=== PATIENT | male | born 1970 | race American Indian/Alaskan Native ===

== ENCOUNTER 2016-11-09 04:15 | Emergency (ER) | payer BC ==
[2016-11-09 04:16] VITALS: BMI 39.9
[2016-11-09 04:20] VITALS: BP 130/84; PULSE 84; RESP 16; TEMP 98.2; O2SAT 95
[2016-11-09] MEDS ORDERED: Albuterol-Ipratrop 3 mg / 0.5 (3 ml) UD ONE (04:23)
--- NOTE | 2016-11-09 04:24 | ED PDOC ---
Arrival/HPI - General Chief Complaint: Shortness Of Breath Time Seen by Provider: 11/09/16 04:23 Historian: Patient - History of Present Illness Narrative History of Present Illness (Text): 11/09/16 04:24 Jeronimo Copeland is a 46 year old male, whose past medical history includes asthma , who presents to the Emergency department complaining of shortness of breath tonight. Patient states symptoms are consistent with previous episodes of asthma. Patient denies any fever, chills, chest pain, nausea, vomiting, neck pain, headache, dizziness, or any other complaints. Time/Duration: Other (tonight) Symptom Onset: Gradual Symptom Course: Unchanged Activities at Onset: Rest, Light Context: Home Past Medical History - Provider Review Nursing Documentation Reviewed: Yes - Infectious Disease Hx of Infectious Diseases: None - Tetanus Immunization Tetanus Immunization: Up to Date - Past Medical History Past Medical History: No Previous - Cardiac Hx Cardiac Disorders: No - Pulmonary Hx Respiratory Disorders: Yes Hx Asthma: Yes - Neurological Hx Neurological Disorder: No - HEENT Hx HEENT Disorder: No - Renal Hx Renal Disorder: No - Endocrine/Metabolic Hx Endocrine Disorders: No - Hematological/Oncological Hx Blood Disorders: No - Integumentary Hx Dermatological Disorder: No - Musculoskeletal/Rheumatological Hx Musculoskeletal Disorders: Yes (sciatic nerve pain) Hx Falls: No - Gastrointestinal Hx Gastrointestinal Disorders: No - Genitourinary/Gynecological Hx Genitourinary Disorders: No - Psychiatric Hx Psychophysiologic Disorder: No Hx Depression: No Hx Emotional Abuse: No Hx Physical Abuse: No Hx Substance Use: No - Past Surgical History Past Surgical History: No Previous - Anesthesia Hx Anesthesia: Yes Hx Anesthesia Reactions: No Hx Malignant Hyperthermia: No - Suicidal Assessment Feels Threatened In Home Enviroment: No Family/Social History - Physician Review Nursing Documentation Reviewed: Yes Family/Social History: No Known Family HX Smoking Status: Never Smoked Hx Alcohol Use: No Hx Substance Use: No Hx Substance Use Treatment: No Allergies/Home Meds Allergies/Adverse Reactions: Allergies seafood Allergy (Severe, Uncoded 02/17/16 08:20) ANAPHYLAXIS Review of Systems - Physician Review All systems were reviewed & negative as marked: Yes - Review of Systems Constitutional: Normal. absent: Fevers ENT: Normal Respiratory: SOB. absent: Cough Cardiovascular: Normal. absent: Chest Pain Gastrointestinal: Normal. absent: Abdominal Pain, Diarrhea, Nausea, Vomiting Musculoskeletal: Normal. absent: Back Pain, Neck Pain Skin: Normal Neurological: Normal. absent: Headache, Dizziness Physical Exam Vital Signs Reviewed: Yes Vital Signs Temp Pulse Resp BP Pulse Ox 11/09/16 04:18 98.2 F 84 16 130/84 95 Temperature: Afebrile Blood Pressure: Normal Pulse: Regular Respiratory Rate: Normal Appearance: Positive for: Well-Appearing, Non-Toxic, Comfortable Pain Distress: None Mental Status: Positive for: Alert and Oriented X 3 - Systems Exam Head: Present: Atraumatic, Normocephalic Pupils: Present: PERRL Extroacular Muscles: Present: EOMI Conjunctiva: Present: Normal Mouth: Present: Moist Mucous Membranes Neck: Present: Normal Range of Motion Respiratory/Chest: Present: Wheezes (Wheezing bilaterally). No: Respiratory Distress, Accessory Muscle Use Cardiovascular: Present: Regular Rate and Rhythm, Normal S1, S2. No: Murmurs Abdomen: Present: Normal Bowel Sounds. No: Tenderness, Distention, Peritoneal Signs Back: Present: Normal Inspection Upper Extremity: Present: Normal Inspection. No: Cyanosis, Edema Lower Extremity: Present: Normal Inspection. No: Edema Neurological: Present: GCS=15, CN II-XII Intact, Speech Normal Skin: Present: Warm, Dry, Normal Color. No: Rashes Psychiatric: Present: Alert, Oriented x 3, Normal Insight, Normal Concentration Medical Decision Making ED Course and Treatment: 11/09/16 04:24 Impression: 46 year old male complaining of shortness of breath. Differential Diagnosis include but are not limited to: asthma Plan: -- Duoneb -- Solu-medrol -- Reassess and disposition Progress Notes: 11/09/16 05:30 On re-evaluation, the patient feels better and is in no acute distress. Wheezing resolved. I have discussed the results and plan with the patient, who expresses understanding. Patient in agreement with plan to discharged home. Patient is stable for discharge. Patient was instructed to follow up with physician/clinic in 1-2 days or return if symptoms worsen or new concerning symptoms arise. - Medication Orders Current Medication Orders: Discontinued Medications Albuterol/Ipratropium (Duoneb 3 Mg/0.5 Mg (3 Ml) Ud) Confirm Administered Dose 3 ml .ROUTE .STK-MED ONE Stop: 11/09/16 04:24 Albuterol/Ipratropium (Duoneb 3 Mg/0.5 Mg (3 Ml) Ud) 3 ml IH ONCE STA Stop: 11/09/16 04:28 Last Admin: 11/09/16 04:50 Dose: 3 ml Methylprednisolone (Solu-Medrol) 125 mg IVP ONCE ONE Stop: 11/09/16 04:30 Last Admin: 11/09/16 04:50 Dose: 125 mg - Sivan Statement The provider has reviewed the documentation as recorded by the Sergioibcorrine Iqbal All medical record entries made by the Sergioibcorrine were at my direction and personally dictated by me. I have reviewed the chart and agree that the record accurately reflects my personal performance of the history, physical exam, medical decision making, and the department course for this patient. I have also personally directed, reviewed, and agree with the discharge instructions and disposition. Disposition/Present on Arrival - Present on Arrival Any Indicators Present on Arrival: No History of DVT/PE: No History of Uncontrolled Diabetes: No Urinary Catheter: No History of Decub. Ulcer: No History Surgical Site Infection Following: None - Disposition Have Diagnosis and Disposition been Completed?: Yes Diagnosis: Asthma exacerbation Disposition: HOME/ ROUTINE Disposition Time: 05:27 Patient Plan: Discharge Patient Problems: Current Active Problems Problem Status Onset Asthma exacerbation Acute Condition: STABLE Discharge Instructions (ExitCare): Asthma (ED) Additional Instructions: Take meds as prescribed/follow up with your doctor this week Prescriptions: predniSONE [Prednisone] 60 mg PO DAILY #15 tab Albuterol HFA [Ventolin HFA 90 mcg/actuation (8 g)] 2 puff IH [id number] PRN #1 puff PRN Reason: Wheezing
[2016-11-09] MEDS ORDERED: Albuterol-Ipratrop 3 mg / 0.5 (3 ml) UD IH STA (04:27)
== END 2016-11-09 05:55 | disposition home or self-care (01) ==
LOC: ED 04:15
DX: J45.901 Unspecified asthma with (acute) exacerbation (principal)
CPT/HCPCS: 96374; 99282; J2930

== ENCOUNTER 2017-03-05 20:22 | Emergency (ER) | payer BC ==
[2017-03-05 20:22] VITALS: BMI 39.9
--- NOTE | 2017-03-05 20:42 | ED PDOC ---
Arrival/HPI - General Chief Complaint: Shortness Of Breath Time Seen by Provider: 03/05/17 20:31 - History of Present Illness Narrative History of Present Illness (Text): 46M c/o asthma worsening since this morning. he c/o "cold sx" specifically cough for a couple days which he thinks triggered it. he ran out of albuterol today. no fever. Past Medical History - Infectious Disease Hx of Infectious Diseases: None - Tetanus Immunization Tetanus Immunization: Up to Date - Past Medical History Past Medical History: No Previous - Cardiac Hx Cardiac Disorders: No - Pulmonary Hx Respiratory Disorders: Yes Hx Asthma: Yes - Neurological Hx Neurological Disorder: No - HEENT Hx HEENT Disorder: No - Renal Hx Renal Disorder: No - Endocrine/Metabolic Hx Endocrine Disorders: No - Hematological/Oncological Hx Blood Disorders: No - Integumentary Hx Dermatological Disorder: No - Musculoskeletal/Rheumatological Hx Musculoskeletal Disorders: Yes (sciatic nerve pain) Hx Falls: No - Gastrointestinal Hx Gastrointestinal Disorders: No - Genitourinary/Gynecological Hx Genitourinary Disorders: No - Psychiatric Hx Psychophysiologic Disorder: No Hx Depression: No Hx Emotional Abuse: No Hx Physical Abuse: No Hx Substance Use: No - Past Surgical History Past Surgical History: No Previous - Anesthesia Hx Anesthesia: Yes Hx Anesthesia Reactions: No Hx Malignant Hyperthermia: No - Suicidal Assessment Feels Threatened In Home Enviroment: No Family/Social History Family/Social History: Other (nc) Smoking Status: Never Smoked Hx Alcohol Use: No Hx Substance Use: No Hx Substance Use Treatment: No Allergies/Home Meds Allergies/Adverse Reactions: Allergies seafood Allergy (Severe, Uncoded 02/17/16 08:20) ANAPHYLAXIS Review of Systems - Review of Systems Constitutional: absent: Fatigue, Fevers Respiratory: SOB, Cough, Wheezing Cardiovascular: absent: Chest Pain Gastrointestinal: absent: Nausea, Vomiting Neurological: absent: Headache, Focal Weakness Physical Exam Vital Signs Temp Pulse Resp BP Pulse Ox 03/05/17 21:36 77 18 123/77 97 03/05/17 21:09 97.8 F 70 18 119/75 95 03/05/17 21:05 18 95 Appearance: Positive for: Well-Appearing, Non-Toxic, Comfortable Pain Distress: None Mental Status: Positive for: Alert and Oriented X 3 - Systems Exam Head: Present: Atraumatic Pupils: Present: PERRL Mouth: Present: Moist Mucous Membranes Respiratory/Chest: Present: Wheezes. No: Good Air Exchange, Respiratory Distress, Accessory Muscle Use, Tachypneic Cardiovascular: Present: Regular Rate and Rhythm Neurological: Present: GCS=15 Skin: Present: Warm, Dry Medical Decision Making ED Course and Treatment: EKG: Ordered, reviewed, and independently interpreted the EKG. Rate : 68 BPM Rhythm : NSR Interpretation : Normal axis, normal intervals, No acute STEMI. Comparison : No previous EKG for comparison. 03/05/17 21:30 Patient states feeling "100% better." Will discharge home. - Medication Orders Current Medication Orders: Discontinued Medications Albuterol/Ipratropium (Duoneb 3 Mg/0.5 Mg (3 Ml) Ud) 3 ml IH Q15M [id number] Stop: 03/05/17 21:16 Last Admin: 03/05/17 20:54 Dose: 3 ml Prednisone (Prednisone Tab) 60 mg PO STAT ONE Stop: 03/05/17 20:38 Last Admin: 03/05/17 20:50 Dose: 60 mg Disposition/Present on Arrival - Present on Arrival Any Indicators Present on Arrival: No History of DVT/PE: No History of Uncontrolled Diabetes: No Urinary Catheter: No History of Decub. Ulcer: No History Surgical Site Infection Following: None - Disposition Have Diagnosis and Disposition been Completed?: Yes Diagnosis: Asthma exacerbation Disposition: HOME/ ROUTINE Disposition Time: 21:30 Condition: IMPROVED Additional Instructions: Please follow up with your doctor. Return to the ER for any worsening symptoms or for any other concerns. Prescriptions: Albuterol HFA [Ventolin HFA 90 mcg/actuation (8 g)] 1 - 2 puff IH Q6H PRN #1 inhaler PRN Reason: Wheezing Prednisone 50 mg PO DAILY #4 tablet Referrals: [facility] [place] - Follow up with primary [facility], [Non-Staff] - Follow up with primary Forms: [employer] (Andorran)
[2017-03-05] MEDS: Albuterol-Ipratrop 3 mg / 0.5 (3 ml) UD IH SCH (20:54)
[2017-03-05 21:10] VITALS: RESP 18; TEMP 97.8
[2017-03-05 22:09] VITALS: BP 123/77; PULSE 77; O2SAT 97
--- NOTE | 2017-03-06 13:07 | CARD ---
APPROVED REPORT EKG Measurement Heart [id number] <Conclusion> Normal sinus rhythm Normal ECG
== END 2017-03-05 21:38 | disposition home or self-care (01) ==
LOC: ED 20:22
DX: J45.901 Unspecified asthma with (acute) exacerbation (principal)

== ENCOUNTER 2017-05-22 19:56 | Emergency (ER) | payer BC ==
[2017-05-22] MEDS ORDERED: Albuterol 0.083% Inhal Sol (2.5 mg/3 mL) UD ONE (20:01)
[2017-05-22] MEDS ORDERED: Albuterol-Ipratrop 3 mg / 0.5 (3 ml) UD ONE (20:01)
[2017-05-22 20:11] VITALS: BP 131/85; PULSE 64; RESP 18; TEMP 98.2; O2SAT 99; BMI 38.6
[2017-05-22] MEDS ORDERED: Albuterol-Ipratrop 3 mg / 0.5 (3 ml) UD IH STA (20:11)
--- NOTE | 2017-05-22 20:19 | ED PDOC ---
Arrival/HPI - General Chief Complaint: Respiratory Distress Time Seen by Provider: 05/22/17 20:03 Historian: Patient - History of Present Illness Narrative History of Present Illness (Text): 05/22/17 20:18 Jeronimo Copeland is a 46 year old male, whose past medical history includes asthma , presents to the Emergency department complaining of shortness of breath associated with wheezing this morning. Patient informs taking albuterol with no improvement to symptoms. Patient states similar symptoms from previous episode. Patient additionally informs coughing with yellow phlegm since today and chronic sinus congestion from couple months. Patient denies any fever, nausea, vomiting, diarrhea, chills, chest pain, sick contact, abdominal pain or any other complaints. Time/Duration: 24 hours Symptom Onset: Gradual Symptom Course: Unchanged Activities at Onset: Light Context: Home Past Medical History - Provider Review Nursing Documentation Reviewed: Yes - Infectious Disease Hx of Infectious Diseases: None - Tetanus Immunization Tetanus Immunization: Up to Date - Past Medical History Past Medical History: No Previous - Cardiac Hx Cardiac Disorders: No - Pulmonary Hx Respiratory Disorders: Yes Hx Asthma: Yes - Neurological Hx Neurological Disorder: No - HEENT Hx HEENT Disorder: No - Renal Hx Renal Disorder: No - Endocrine/Metabolic Hx Endocrine Disorders: No - Hematological/Oncological Hx Blood Disorders: No - Integumentary Hx Dermatological Disorder: No - Musculoskeletal/Rheumatological Hx Musculoskeletal Disorders: Yes (sciatic nerve pain) Hx Falls: No - Gastrointestinal Hx Gastrointestinal Disorders: No - Genitourinary/Gynecological Hx Genitourinary Disorders: No - Psychiatric Hx Psychophysiologic Disorder: No Hx Depression: No Hx Emotional Abuse: No Hx Physical Abuse: No Hx Substance Use: No - Past Surgical History Past Surgical History: No Previous - Anesthesia Hx Anesthesia: Yes Hx Anesthesia Reactions: No Hx Malignant Hyperthermia: No - Suicidal Assessment Feels Threatened In Home Enviroment: No Family/Social History - Physician Review Nursing Documentation Reviewed: Yes Family/Social History: Unknown Family HX Smoking Status: Never Smoked Hx Alcohol Use: No Hx Substance Use: No Hx Substance Use Treatment: No Allergies/Home Meds Allergies/Adverse Reactions: Allergies seafood Allergy (Severe, Uncoded 05/22/17 20:08) ANAPHYLAXIS Review of Systems - Physician Review All systems were reviewed & negative as marked: Yes - Review of Systems Constitutional: Normal. absent: Fevers, Night Sweats Eyes: Normal ENT: Normal. absent: Sore Throat Respiratory: SOB (associated wheezing ), Cough (yellow phlegm ) Cardiovascular: Normal. absent: Chest Pain Gastrointestinal: Normal. absent: Abdominal Pain, Diarrhea, Nausea, Vomiting Genitourinary Male: Normal Musculoskeletal: Normal Skin: Normal Neurological: Normal Endocrine: Normal Hemo/Lymphatic: Normal Psychiatric: Normal Physical Exam Vital Signs Reviewed: Yes Vital Signs Temp Pulse Resp BP Pulse Ox 05/22/17 20:05 98.2 F 64 18 131/85 99 Temperature: Afebrile Blood Pressure: Normal Pulse: Regular Respiratory Rate: Normal Appearance: Positive for: Well-Appearing, Non-Toxic, Comfortable Pain Distress: None Mental Status: Positive for: Alert and Oriented X 3 - Systems Exam Head: Present: Atraumatic, Normocephalic Pupils: Present: PERRL Extroacular Muscles: Present: EOMI Conjunctiva: Present: Normal Mouth: Present: Moist Mucous Membranes Nose (Internal): Present: Other (Mild nasal inflammation ) Neck: Present: Normal Range of Motion Respiratory/Chest: Present: Good Air Exchange, Respiratory Distress (mild respiratory distress ), Accessory Muscle Use, Wheezes (diffuse wheezing ), Other (clear phlegm ) Cardiovascular: Present: Regular Rate and Rhythm, Normal S1, S2. No: Murmurs Abdomen: Present: Normal Bowel Sounds. No: Tenderness, Distention, Peritoneal Signs Back: Present: Normal Inspection Upper Extremity: Present: Normal Inspection. No: Cyanosis, Edema Lower Extremity: Present: Normal Inspection. No: Edema Neurological: Present: GCS=15, CN II-XII Intact, Speech Normal Skin: Present: Warm, Dry, Normal Color. No: Rashes Psychiatric: Present: Alert, Oriented x 3, Normal Insight, Normal Concentration Medical Decision Making ED Course and Treatment: 05/22/17 20:19 Impression: 46 year old male presents to the Emergency department for shortness of breath associated with coughing with phlegm. Differential Diagnosis included but are not limited to: asthma exacerbation. Plan: -- Albuterol -- zithromax -- prednisone -- Reassess and disposition Prior Visits: Notes and results from previous visits were reviewed. On 03/05/17 patient was seen in the Emergency department for worsening asthma. Patient was discharged home upon improvement. Progress Notes: 05/22/17 20:49 Reassessment Condition: Re-examined, Improved - Medication Orders Current Medication Orders: Discontinued Medications Albuterol/Ipratropium (Duoneb 3 Mg/0.5 Mg (3 Ml) Ud) 3 ml IH STAT STA Stop: 05/22/17 20:12 Last Admin: 05/22/17 20:36 Dose: 3 ml Azithromycin (Zithromax) 500 mg PO STAT STA PRN Reason: Protocol Stop: 05/22/17 20:13 Last Admin: 05/22/17 20:35 Dose: 500 mg Prednisone (Prednisone Tab) 60 mg PO STAT ONE Stop: 05/22/17 20:12 Last Admin: 05/22/17 20:35 Dose: 60 mg - Scribe Statement The provider has reviewed the documentation as recorded by the Scribe Connie Becker. All medical record entries made by the Sergioibcorrine were at my direction and personally dictated by me. I have reviewed the chart and agree that the record accurately reflects my personal performance of the history, physical exam, medical decision making, and the department course for this patient. I have also personally directed, reviewed, and agree with the discharge instructions and disposition. Disposition/Present on Arrival - Present on Arrival Any Indicators Present on Arrival: No History of DVT/PE: No History of Uncontrolled Diabetes: No Urinary Catheter: No History of Decub. Ulcer: No History Surgical Site Infection Following: None - Disposition Have Diagnosis and Disposition been Completed?: Yes Diagnosis: Asthma exacerbation Disposition: HOME/ ROUTINE Disposition Time: 21:00 Patient Plan: Discharge Patient Problems: Current Active Problems Problem Status Onset Asthma exacerbation Acute Condition: IMPROVED Discharge Instructions (ExitCare): Asthma (DC), Acute Bronchitis (ED) Additional Instructions: Your blood pressure was elevated today 135/85, please followup with your doctor for a blood pressure recheck and management if necessary. Prescriptions: Azithromycin [Zithromax] 250 mg PO DAILY #4 tab Fluticasone/Salmeterol 100/50 [Advair Diskus 100/50] 1 puff IH Q12 #1 inhaler Prednisone 50 mg PO DAILY #4 tablet Referrals: [facility], [Primary Care Provider] - Follow up with primary Forms: [employer] (Paraguayan)
== END 2017-05-22 21:00 | disposition home or self-care (01) ==
LOC: ED 19:56
DX: J45.901 Unspecified asthma with (acute) exacerbation (principal)

== ENCOUNTER 2017-06-17 23:56 | Emergency (ER) | payer BC ==
[2017-06-17 23:56] VITALS: BMI 39.9
[2017-06-18 00:25] VITALS: RESP 18; TEMP 98.4
--- NOTE | 2017-06-18 01:18 | ED PDOC ---
Arrival/HPI - General Chief Complaint: Male Genitourinary Time Seen by Provider: 06/18/17 00:56 Historian: Patient - History of Present Illness Narrative History of Present Illness (Text): 06/18/17 01:17 Jeronimo Copeland is a 46 year old male, whose past medical history includes asthma , who presents to the Emergency department for STD prophylaxis tonight. Patient states his fiance was recently diagnosed with trichomonas and is requesting prophylactic treatment. Patient denies any penile discharge, rash, abdominal pain, nausea, vomiting, or any other complaints. Symptom Onset: Gradual Symptom Course: Unchanged Activities at Onset: Light Context: Home Past Medical History - Provider Review Nursing Documentation Reviewed: Yes - Infectious Disease Hx of Infectious Diseases: None - Tetanus Immunization Tetanus Immunization: Up to Date - Past Medical History Past Medical History: No Previous - Cardiac Hx Cardiac Disorders: No - Pulmonary Hx Respiratory Disorders: Yes Hx Asthma: Yes - Neurological Hx Neurological Disorder: No - HEENT Hx HEENT Disorder: No - Renal Hx Renal Disorder: No - Endocrine/Metabolic Hx Endocrine Disorders: No - Hematological/Oncological Hx Blood Disorders: No - Integumentary Hx Dermatological Disorder: No - Musculoskeletal/Rheumatological Hx Musculoskeletal Disorders: Yes (sciatic nerve pain) Hx Falls: No - Gastrointestinal Hx Gastrointestinal Disorders: No - Genitourinary/Gynecological Hx Genitourinary Disorders: No - Psychiatric Hx Psychophysiologic Disorder: No Hx Depression: No Hx Emotional Abuse: No Hx Physical Abuse: No Hx Substance Use: No - Past Surgical History Past Surgical History: No Previous - Anesthesia Hx Anesthesia: Yes Hx Anesthesia Reactions: No Hx Malignant Hyperthermia: No - Suicidal Assessment Feels Threatened In Home Enviroment: No Family/Social History - Physician Review Nursing Documentation Reviewed: Yes Family/Social History: Unknown Family HX Smoking Status: Never Smoked Hx Alcohol Use: No Hx Substance Use: No Hx Substance Use Treatment: No Allergies/Home Meds Allergies/Adverse Reactions: Allergies seafood Allergy (Severe, Uncoded 06/18/17 00:12) ANAPHYLAXIS Review of Systems - Physician Review All systems were reviewed & negative as marked: Yes - Review of Systems Constitutional: Normal. absent: Fevers Eyes: Normal ENT: Normal Respiratory: Normal. absent: SOB, Cough Cardiovascular: Normal. absent: Chest Pain Gastrointestinal: Normal. absent: Abdominal Pain, Diarrhea, Nausea, Vomiting Genitourinary Male: Normal. absent: Dysuria, Frequency, Hematuria, Urinary Output Changes Musculoskeletal: Normal. absent: Back Pain, Neck Pain Skin: Normal. absent: Rash Neurological: Normal. absent: Headache, Dizziness Endocrine: Normal Hemo/Lymphatic: Normal Psychiatric: Normal Physical Exam Vital Signs Reviewed: Yes Vital Signs Temp Pulse Resp BP Pulse Ox 06/18/17 01:59 86 18 126/75 99 06/18/17 00:13 98.4 F 72 18 120/80 96 Temperature: Afebrile Blood Pressure: Normal Pulse: Regular Respiratory Rate: Normal Appearance: Positive for: Well-Appearing, Non-Toxic, Comfortable Pain Distress: None Mental Status: Positive for: Alert and Oriented X 3 - Systems Exam Head: Present: Atraumatic, Normocephalic Pupils: Present: PERRL Extroacular Muscles: Present: EOMI Conjunctiva: Present: Normal Mouth: Present: Moist Mucous Membranes Neck: Present: Normal Range of Motion Respiratory/Chest: Present: Clear to Auscultation, Good Air Exchange. No: Respiratory Distress, Accessory Muscle Use Cardiovascular: Present: Regular Rate and Rhythm, Normal S1, S2. No: Murmurs Abdomen: Present: Normal Bowel Sounds. No: Tenderness, Distention, Peritoneal Signs Back: Present: Normal Inspection Upper Extremity: Present: Normal Inspection. No: Cyanosis, Edema Lower Extremity: Present: Normal Inspection. No: Edema Neurological: Present: GCS=15, CN II-XII Intact, Speech Normal Skin: Present: Warm, Dry, Normal Color. No: Rashes Psychiatric: Present: Alert, Oriented x 3, Normal Insight, Normal Concentration Medical Decision Making ED Course and Treatment: 06/18/17 01:17 Impression: 46 year old male presents for STD prophylaxis tonight. Plan: -- GC/Chlamydia -- Flagyl -- Reassess and disposition Progress Notes: - Medication Orders Current Medication Orders: Discontinued Medications Metronidazole (Flagyl) 2,000 mg PO STAT STA PRN Reason: Protocol Stop: 06/18/17 01:19 Last Admin: 06/18/17 01:30 Dose: 2,000 mg - Scribe Statement The provider has reviewed the documentation as recorded by the Scribe Roxanna Iqbal All medical record entries made by the Scribe were at my direction and personally dictated by me. I have reviewed the chart and agree that the record accurately reflects my personal performance of the history, physical exam, medical decision making, and the department course for this patient. I have also personally directed, reviewed, and agree with the discharge instructions and disposition. Disposition/Present on Arrival - Present on Arrival Any Indicators Present on Arrival: No History of DVT/PE: No History of Uncontrolled Diabetes: No Urinary Catheter: No History of Decub. Ulcer: No History Surgical Site Infection Following: None - Disposition Have Diagnosis and Disposition been Completed?: Yes Diagnosis: Sexually transmitted disease exposure Disposition: HOME/ ROUTINE Disposition Time: 01:20 Patient Plan: Discharge Condition: GOOD Additional Instructions: Follow up with your doctor this week Forms: [employer] (French)
[2017-06-18 02:03] VITALS: BP 126/75; PULSE 86; O2SAT 99
== END 2017-06-18 01:59 | disposition home or self-care (01) ==
LOC: ED 23:56
DX: Z20.2 Contact with and (suspected) exposure to infections with a predominantly sexual mode of transmission (principal)

== ENCOUNTER 2017-08-31 09:50 | Emergency (ER) | payer BC ==
[2017-08-31 09:58] VITALS: BP 151/66; TEMP 98.5
[2017-08-31 09:59] VITALS: BMI 40.7
[2017-08-31 10:02] VITALS: PULSE 74; RESP 19
[2017-08-31] MEDS ORDERED: Albuterol-Ipratrop 3 mg / 0.5 (3 ml) UD IH STA (10:10)
[2017-08-31] MEDS ORDERED: Albuterol-Ipratrop 3 mg / 0.5 (3 ml) UD ONE (10:18)
--- NOTE | 2017-08-31 10:24 | ED PDOC ---
Arrival/HPI - General Chief Complaint: Shortness Of Breath Time Seen by Provider: 08/31/17 09:56 Historian: Patient - History of Present Illness Narrative History of Present Illness (Text): 08/31/17 10:20 46 yo M with PMH of asthma presents complaining of asthma exacerbation, specifically: chest tightness, shortness of breath, cough, runny nose, sneezing. Symptoms have been ongoing for 3 days, without improvement. He has had episodes like in this in the past, for which he usually reports to the ER, gets breathing treatments and steroids, and feels better and goes home. Patient only takes ventolin at home, which he has been using 5-6 times daily, and normally uses 3-4 times daily every day. He reports two sick contacts at home with similar symptoms. He denies fever, abdominal pain, headache. Denies chest pain. Time/Duration: < week Symptom Onset: Gradual Symptom Course: Unchanged Quality: Tightness Activities at Onset: Rest Past Medical History - Provider Review Nursing Documentation Reviewed: Yes - Travel History Have you recently traveled outside [place] w/in the past 3 mons?: No - Patient History Narrative Patient History: Asthma - Infectious Disease Hx of Infectious Diseases: None - Tetanus Immunization Tetanus Immunization: Up to Date - Past Medical History Past Medical History: No Previous - Cardiac Hx Cardiac Disorders: No - Pulmonary Hx Respiratory Disorders: Yes Hx Asthma: Yes - Neurological Hx Neurological Disorder: No - HEENT Hx HEENT Disorder: No - Renal Hx Renal Disorder: No - Endocrine/Metabolic Hx Endocrine Disorders: No - Hematological/Oncological Hx Blood Disorders: No - Integumentary Hx Dermatological Disorder: No - Musculoskeletal/Rheumatological Hx Musculoskeletal Disorders: Yes (sciatic nerve pain) Hx Falls: No - Gastrointestinal Hx Gastrointestinal Disorders: No - Genitourinary/Gynecological Hx Genitourinary Disorders: No - Psychiatric Hx Psychophysiologic Disorder: No Hx Depression: No Hx Emotional Abuse: No Hx Physical Abuse: No Hx Substance Use: No - Past Surgical History Past Surgical History: No Previous - Anesthesia Hx Anesthesia: Yes Hx Anesthesia Reactions: No Hx Malignant Hyperthermia: No - Suicidal Assessment Feels Threatened In Home Enviroment: No Family/Social History - Physician Review Nursing Documentation Reviewed: Yes Family/Social History: Diabetes Narrative Family History (Free Text): 08/31/17 10:27 Asthma, lung CA Smoking Status: Never Smoked Hx Alcohol Use: No Hx Substance Use: No Hx Substance Use Treatment: No Allergies/Home Meds Allergies/Adverse Reactions: Allergies seafood Allergy (Severe, Uncoded 08/31/17 09:58) ANAPHYLAXIS Review of Systems - Review of Systems Constitutional: Normal Eyes: Normal ENT: Sore Throat, Rhinorrhea, Sinus Congestion Respiratory: SOB, Cough, Sputum, Wheezing Cardiovascular: Normal Gastrointestinal: Normal Genitourinary Male: Normal Musculoskeletal: Normal Skin: Normal Neurological: Normal Endocrine: Normal Hemo/Lymphatic: Normal Psychiatric: Normal Physical Exam Vital Signs Temp Pulse Resp BP Pulse Ox 08/31/17 09:59 74 19 151/66 H 100 08/31/17 09:58 98.5 F 81 18 151/66 H 95 Temperature: Afebrile Blood Pressure: Hypertensive Pulse: Regular Respiratory Rate: Normal Appearance: Positive for: Well-Appearing, Non-Toxic, Comfortable Pain Distress: None Mental Status: Positive for: Alert and Oriented X 3 - Systems Exam Head: Present: Atraumatic, Normocephalic Pupils: Present: PERRL Extroacular Muscles: Present: EOMI Conjunctiva: Present: Normal Mouth: Present: Moist Mucous Membranes Neck: Present: Normal Range of Motion Respiratory/Chest: Present: Clear to Auscultation, Wheezes (upper airway), Decreased Breath Sounds. No: Good Air Exchange, Respiratory Distress, Accessory Muscle Use Cardiovascular: Present: Regular Rate and Rhythm, Normal S1, S2 Abdomen: Present: Normal Bowel Sounds. No: Tenderness, Distention Upper Extremity: Present: Normal Inspection Lower Extremity: Present: Normal Inspection Neurological: Present: GCS=15, CN II-XII Intact Skin: Present: Warm, Dry, Normal Color Psychiatric: Present: Alert, Oriented x 3, Normal Insight, Normal Concentration Medical Decision Making ED Course and Treatment: 08/31/17 10:32 Ordered CXR PA/LAT Ordered Duonebs, PO prednisone, and Tessalon Perles 08/31/17 10:58 CXR unremarkable, as interpreted by ED attending Clinically improved. Will discharge to home with course of PO prednisone and nebulized albuterol Reassessment Condition: Re-examined, Improved - RAD Interpretation Radiology Orders: 08/31/17 10:10 CHEST TWO VIEWS (PA/LAT) [RAD] Stat Research Microbiologist: ED Physician - Medication Orders Current Medication Orders: Discontinued Medications Albuterol/Ipratropium (Duoneb 3 Mg/0.5 Mg (3 Ml) Ud) 3 ml IH STAT STA Stop: 08/31/17 10:11 Last Admin: 08/31/17 10:25 Dose: 3 ml Benzonatate (Tessalon Perles) 100 mg PO STAT STA Stop: 08/31/17 10:20 Oseltamivir Phosphate (Tamiflu Cap) 75 mg PO STAT STA PRN Reason: Protocol Stop: 08/31/17 10:15 Prednisone (Prednisone Tab) 50 mg PO STAT STA Stop: 08/31/17 10:11 Disposition/Present on Arrival - Present on Arrival Any Indicators Present on Arrival: No History of DVT/PE: No History of Uncontrolled Diabetes: No Urinary Catheter: No History of Decub. Ulcer: No History Surgical Site Infection Following: None - Disposition Have Diagnosis and Disposition been Completed?: Yes Diagnosis: Asthma, Influenza-like illness Disposition: HOME/ ROUTINE Disposition Time: 11:00 Patient Plan: Discharge Patient Problems: Current Active Problems Problem Status Onset Asthma Acute Influenza-like illness Acute Condition: STABLE Discharge Instructions (ExitCare): Asthma in Adults, Viral Syndrome (DC) Additional Instructions: please follow up with your doctor/clinic. return to er with worsening symptoms or concerns. Prescriptions: Albuterol 0.083% [Albuterol 0.083% Inhal Olive (2.5 mg/3 ml) UD] 2.5 mg IH Q6 PRN #20 neb PRN Reason: Wheezing Prednisone 50 mg PO DAILY #5 tablet Referrals: [facility] [Outside] - Follow up with primary [facility] at [facility] [Outside] - Follow up with primary Forms: [employer] (Bulgarian)
--- NOTE | 2017-08-31 11:05 | RAD ---
HISTORY: cough, asthma COMPARISON: 07/12/2015 TECHNIQUE: Chest PA and lateral FINDINGS: LUNGS: No active pulmonary disease. PLEURA: No significant pleural effusion identified. No pneumothorax apparent. CARDIOVASCULAR: Normal. OSSEOUS STRUCTURES: No significant abnormalities. VISUALIZED UPPER ABDOMEN: Normal. OTHER FINDINGS: None. IMPRESSION: No active disease.
[2017-08-31 11:07] VITALS: O2SAT 97
== END 2017-08-31 11:08 | disposition home or self-care (01) ==
LOC: ED 09:50
DX: J45.909 Unspecified asthma, uncomplicated (principal); J11.1 Influenza due to unidentified influenza virus with other respiratory manifestations

== ENCOUNTER 2017-12-04 13:55 | Emergency (ER) | payer BC ==
[2017-12-04 14:30] VITALS: TEMP 98.8; BMI 39.9
--- NOTE | 2017-12-04 14:47 | ED PDOC ---
Arrival/HPI - General Chief Complaint: Respiratory Distress Time Seen by Provider: 12/04/17 14:35 Historian: Patient - History of Present Illness Narrative History of Present Illness (Text): 12/04/17 14:40 47 year old male, whose PMH includes asthma, who presents to the emergency department complaining of wheezing since last night. Patient reports while going to work today it became worse, felt nauseous, and has x4 episodes of vomiting. Patient notes using pump over 4 times with no significant relief. Patient denies chest pain, headache, abdominal pain, diarrhea, cough, dizziness , or other complaints. PMD: Dr. Hurd Time/Duration: 24 hours Symptom Onset: Sudden Symptom Course: Worsening Quality: Tightness Context: Home Past Medical History - Provider Review Nursing Documentation Reviewed: Yes - Infectious Disease Hx of Infectious Diseases: None - Tetanus Immunization Tetanus Immunization: Up to Date - Past Medical History Past Medical History: No Previous - Cardiac Hx Cardiac Disorders: No - Pulmonary Hx Respiratory Disorders: Yes Hx Asthma: Yes - Neurological Hx Neurological Disorder: No - HEENT Hx HEENT Disorder: No - Renal Hx Renal Disorder: No - Endocrine/Metabolic Hx Endocrine Disorders: No - Hematological/Oncological Hx Blood Disorders: No - Integumentary Hx Dermatological Disorder: No - Musculoskeletal/Rheumatological Hx Musculoskeletal Disorders: Yes (sciatic nerve pain) Hx Falls: No - Gastrointestinal Hx Gastrointestinal Disorders: No - Genitourinary/Gynecological Hx Genitourinary Disorders: No - Psychiatric Hx Psychophysiologic Disorder: No Hx Depression: No Hx Emotional Abuse: No Hx Physical Abuse: No Hx Substance Use: No - Past Surgical History Past Surgical History: No Previous - Anesthesia Hx Anesthesia: Yes Hx Anesthesia Reactions: No Hx Malignant Hyperthermia: No - Suicidal Assessment Feels Threatened In Home Enviroment: No Family/Social History - Physician Review Nursing Documentation Reviewed: Yes Family/Social History: Unknown Family HX Smoking Status: Never Smoked Hx Alcohol Use: No Hx Substance Use: No Hx Substance Use Treatment: No Allergies/Home Meds Allergies/Adverse Reactions: Allergies seafood Allergy (Severe, Uncoded 08/31/17 09:58) ANAPHYLAXIS Review of Systems - Review of Systems Constitutional: absent: Fevers Eyes: absent: Vision Changes ENT: absent: Sore Throat Respiratory: Wheezing Cardiovascular: absent: Chest Pain Gastrointestinal: Nausea, Vomiting. absent: Abdominal Pain, Diarrhea Genitourinary Male: absent: Dysuria Musculoskeletal: absent: Back Pain Skin: absent: Rash Neurological: absent: Headache, Dizziness Endocrine: absent: Diaphoresis Physical Exam Vital Signs Reviewed: Yes Vital Signs Temp Pulse Resp BP Pulse Ox 12/04/17 16:04 96 H 18 118/65 98 12/04/17 14:27 98.8 F 107 H 20 121/69 99 Temperature: Afebrile Blood Pressure: Normal Pulse: Tachycardic Respiratory Rate: Normal Appearance: Positive for: Well-Appearing, Non-Toxic, Comfortable Pain Distress: None Mental Status: Positive for: Alert and Oriented X 3 - Systems Exam Head: Present: Atraumatic, Normocephalic Pupils: Present: PERRL Extroacular Muscles: Present: EOMI Conjunctiva: Present: Normal Mouth: Present: Moist Mucous Membranes Respiratory/Chest: Present: Wheezes, Decreased Breath Sounds. No: Clear to Auscultation, Good Air Exchange, Respiratory Distress, Accessory Muscle Use, Rales, Retracting Cardiovascular: Present: Regular Rate and Rhythm, Normal S1, S2. No: Murmurs Abdomen: Present: Normal Bowel Sounds. No: Tenderness, Distention, Peritoneal Signs, Rebound, Guarding Neurological: Present: GCS=15, CN II-XII Intact, Speech Normal Skin: Present: Warm, Dry, Normal Color. No: Rashes Psychiatric: Present: Alert, Oriented x 3, Normal Insight, Normal Concentration Medical Decision Making ED Course and Treatment: 12/04/17 Impression: 47 year old male with wheezing and decompressed sounds complaining of wheezing since last night Differential Diagnosis included but are not limited to: Asthma exacerbation vs. Gastritis Plan: -- Duoneb, Zofran, and Prednisone -- Reassess and disposition Progress Notes: 12/04/17 16:08 On reevaluation, patient's lungs are clear, No w/r/r. No retractions. He has better air entry. He feels much better. No longer has nausea. Patient walking in the ED without shortness of breathe. I will have him follow up with his primary care doctor this week. I advised him to return to the ED if symptoms worsen or any other concern. - Medication Orders Current Medication Orders: Discontinued Medications Albuterol/Ipratropium (Duoneb 3 Mg/0.5 Mg (3 Ml) Ud) 3 ml IH Q15M BENJI Stop: 12/04/17 15:16 Last Admin: 12/04/17 15:29 Dose: 3 ml Ondansetron HCl (Zofran Odt) 4 mg PO STAT STA Stop: 12/04/17 14:45 Last Admin: 12/04/17 14:59 Dose: 4 mg Prednisone (Prednisone Tab) 60 mg PO STAT STA Stop: 12/04/17 14:45 Last Admin: 12/04/17 14:58 Dose: 60 mg - Scribe Statement The provider has reviewed the documentation as recorded by the Sivan Boogie Provider Sivan Attestation: All medical record entries made by the Sivan were at my direction and personally dictated by me. I have reviewed the chart and agree that the record accurately reflects my personal performance of the history, physical exam, medical decision making, and the department course for this patient. I have also personally directed, reviewed, and agree with the discharge instructions and disposition. Disposition/Present on Arrival - Present on Arrival Any Indicators Present on Arrival: No History of DVT/PE: No History of Uncontrolled Diabetes: No Urinary Catheter: No History of Decub. Ulcer: No History Surgical Site Infection Following: None - Disposition Have Diagnosis and Disposition been Completed?: Yes Diagnosis: Asthma exacerbation, Gastritis Disposition: HOME/ ROUTINE Disposition Time: 16:10 Patient Plan: Discharge Patient Problems: Current Active Problems Problem Status Onset Asthma exacerbation Acute Gastritis Acute Condition: IMPROVED Discharge Instructions (ExitCare): Asthma, Adult (DC), Gastritis (DC) Additional Instructions: ZACARIAS OWENS, thank you for letting us take care of you today. Your provider was Evan Gloria DO and you were treated for Asthma Exacerbation, Gastritis. The emergency medical care you received today was directed at your acute symptoms. If you were prescribed any medication, please fill it and take as directed. It may take several days for your symptoms to resolve. Return to the Emergency Department if your symptoms worsen, do not improve, or if you have any other problems. Please contact your doctor or call one of the physicians/clinics you have been referred to that are listed on the Patient Visit Information form that is included in your discharge packet. Bring any paperwork you were given at discharge with you along with any medications you are taking to your follow up visit. Our treatment cannot replace ongoing medical care by a primary care provider outside of the emergency department. Thank you for allowing the [facility] team to be part of your care today. If you had an X-Ray or CT scan: A Radiologist will review the ED reading if any change in treatment is needed we will contact you. If you had a blood, urine, or wound culture: It will take several days for the results, if any change in treatment is needed we will contact you. If you had an STI test: It will take 48 hours for the results. Please call after 1 week if you have not heard back. Prescriptions: Albuterol HFA [Ventolin HFA 90 mcg/actuation (8 g)] 2 puff IH Q4 #1 puff predniSONE [predniSONE Tab] 40 mg PO DAILY #8 tab Ranitidine HCl [Zantac] 150 mg PO BID PRN #30 tablet PRN Reason: Pain, Mild (1-3) Referrals: Non [facility] Provider, [Non-Staff] - Follow up with primary Forms: [employer] (Danish), WORK NOTE
[2017-12-04] MEDS: Albuterol-Ipratrop 3 mg / 0.5 (3 ml) UD IH SCH ×3 (14:59→15:29)
[2017-12-04 16:04] VITALS: BP 118/65; PULSE 96; RESP 18; O2SAT 98
== END 2017-12-04 16:25 | disposition home or self-care (01) ==
LOC: ED 13:55
DX: J45.901 Unspecified asthma with (acute) exacerbation (principal); K29.70 Gastritis, unspecified, without bleeding

== ENCOUNTER 2018-04-05 10:15 | Emergency (ER) | payer BC ==
[2018-04-05 10:16] VITALS: TEMP 98.3
[2018-04-05 10:17] VITALS: BMI 38.2
[2018-04-05] MEDS ORDERED: Albuterol-Ipratrop 3 mg / 0.5 (3 ml) UD IH STA (10:24)
[2018-04-05] MEDS ORDERED: Albuterol 0.083% Inhal Sol (2.5 mg/3 mL) UD INH STA (10:38)
--- NOTE | 2018-04-05 10:54 | ED PDOC ---
Arrival/HPI - General Chief Complaint: Cough, Cold, Congestion Historian: Patient - History of Present Illness Narrative History of Present Illness (Text): 04/05/18 10:24 47 year old male, with past medical history asthma, presents to the Emergency department complaining of asthma exacerbation since yesterday. Patient informs associated mild non-productive cough and sinus pressure, with no improvement to symptoms after nebulizer treatments. Patient reports sick contact with son and worries that may have triggered the symptoms. Patient informs worsening symptoms at work, prompting him to present to the ED for medical evaluation. Patient denies any other somatic complaints. Patient denies any fevers, chills, headache, dizziness, chest pain, dyspnea on exertion, abdominal pain, nausea, vomiting, diarrhea, back pain, neck pain, or any other complaints. Time/Duration: 24 hours Symptom Onset: Gradual Symptom Course: Unchanged Activities at Onset: Light Context: Work Past Medical History - Provider Review Nursing Documentation Reviewed: Yes - Infectious Disease Hx of Infectious Diseases: None - Tetanus Immunization Tetanus Immunization: Up to Date - Past Medical History Past Medical History: No Previous - Cardiac Hx Cardiac Disorders: No - Pulmonary Hx Respiratory Disorders: Yes Hx Asthma: Yes - Neurological Hx Neurological Disorder: No - HEENT Hx HEENT Disorder: No - Renal Hx Renal Disorder: No - Endocrine/Metabolic Hx Endocrine Disorders: No - Hematological/Oncological Hx Blood Disorders: No - Integumentary Hx Dermatological Disorder: No - Musculoskeletal/Rheumatological Hx Musculoskeletal Disorders: Yes (sciatic nerve pain) Hx Falls: No - Gastrointestinal Hx Gastrointestinal Disorders: No - Genitourinary/Gynecological Hx Genitourinary Disorders: No - Psychiatric Hx Psychophysiologic Disorder: No Hx Depression: No Hx Emotional Abuse: No Hx Physical Abuse: No Hx Substance Use: No - Past Surgical History Past Surgical History: No Previous - Anesthesia Hx Anesthesia: Yes Hx Anesthesia Reactions: No Hx Malignant Hyperthermia: No - Suicidal Assessment Feels Threatened In Home Enviroment: No Family/Social History - Physician Review Nursing Documentation Reviewed: Yes Family/Social History: Unknown Family HX Smoking Status: Never Smoked Hx Alcohol Use: No Hx Substance Use: No Hx Substance Use Treatment: No Allergies/Home Meds Allergies/Adverse Reactions: Allergies seafood Allergy (Severe, Uncoded 08/31/17 09:58) ANAPHYLAXIS Review of Systems - Physician Review All systems were reviewed & negative as marked: Yes - Review of Systems Constitutional: absent: Fevers ENT: Other (Sinus pressure) Respiratory: SOB, Cough Cardiovascular: absent: Chest Pain, YOUSSEF Gastrointestinal: absent: Abdominal Pain, Diarrhea, Nausea, Vomiting Genitourinary Male: absent: Dysuria, Urinary Output Changes Musculoskeletal: absent: Back Pain, Neck Pain Skin: absent: Rash Neurological: absent: Headache, Dizziness Psychiatric: absent: Anxiety, Depression Physical Exam Vital Signs Reviewed: Yes Vital Signs Temp Pulse Resp BP Pulse Ox 04/05/18 10:15 98.3 F 82 18 124/74 97 Temperature: Afebrile Blood Pressure: Normal Pulse: Regular Respiratory Rate: Normal Appearance: Positive for: Well-Appearing, Non-Toxic, Comfortable Pain Distress: None Mental Status: Positive for: Alert and Oriented X 3 - Systems Exam Head: Present: Atraumatic, Normocephalic Pupils: Present: PERRL Extroacular Muscles: Present: EOMI Conjunctiva: Present: Normal Mouth: Present: Moist Mucous Membranes Nose (External): Present: Other (mild tenderness to palpation to right sided frontal sinus ) Neck: Present: Normal Range of Motion Respiratory/Chest: Present: Good Air Exchange, Wheezes (minimal wheeze bilateral bases). No: Respiratory Distress, Accessory Muscle Use, Tachypneic Cardiovascular: Present: Regular Rate and Rhythm, Normal S1, S2. No: Murmurs Abdomen: No: Tenderness, Distention, Peritoneal Signs Back: Present: Normal Inspection Upper Extremity: Present: Normal Inspection. No: Cyanosis, Edema Lower Extremity: Present: Normal Inspection. No: Edema Neurological: Present: GCS=15, CN II-XII Intact, Speech Normal Skin: Present: Warm, Dry, Normal Color. No: Rashes Psychiatric: Present: Alert, Oriented x 3, Normal Insight, Normal Concentration Medical Decision Making ED Course and Treatment: 04/05/18 10:45 Impression: 47 year old male presents to the Emergency department complaining of asthma exacerbation. Differential Diagnosis included but are not limited to: Asthma exacerbation Bronchitis Rhinosinusitis Plan: -- Albuterol -- Duoneb -- Prednisone -- Reassess and disposition Prior Visits: Notes and results from previous visits were reviewed. Progress Notes: - Medication Orders Current Medication Orders: Discontinued Medications Albuterol Sulfate (Albuterol 0.083% Inhal Olive (2.5 Mg/3 Ml) Ud) 2.5 mg INH STAT STA Stop: 04/05/18 10:39 Last Admin: 04/05/18 10:47 Dose: 2.5 mg Albuterol/Ipratropium (Duoneb 3 Mg/0.5 Mg (3 Ml) Ud) 3 ml IH STAT STA Stop: 04/05/18 10:25 Last Admin: 04/05/18 10:30 Dose: 3 ml Prednisone (Prednisone Tab) 60 mg PO STAT ONE Stop: 04/05/18 10:24 Last Admin: 04/05/18 10:30 Dose: 60 mg - Scribe Statement The provider has reviewed the documentation as recorded by the Scribe Connie Becker. All medical record entries made by the Scribe were at my direction and personally dictated by me. I have reviewed the chart and agree that the record accurately reflects my personal performance of the history, physical exam, medical decision making, and the department course for this patient. I have also personally directed, reviewed, and agree with the discharge instructions and disposition. Disposition/Present on Arrival - Present on Arrival Any Indicators Present on Arrival: No History of DVT/PE: No History of Uncontrolled Diabetes: No Urinary Catheter: No History of Decub. Ulcer: No History Surgical Site Infection Following: None - Disposition Have Diagnosis and Disposition been Completed?: Yes Diagnosis: Acute asthma exacerbation Disposition: HOME/ ROUTINE Disposition Time: 11:39 Patient Plan: Discharge Condition: IMPROVED Discharge Instructions (ExitCare): Asthma, Adult (DC), Rescue vs Controller Inhalers Print Language: TUVALU[place] Additional Instructions: All medical record entries made by the Scribe were at my direction and personally dictated by me. I have reviewed the chart and agree that the record accurately reflects my personal performance of the history, physical exam, medical decision making, and the department course for this patient. I have also personally directed, reviewed, and agree with the discharge instructions and disposition. Prescriptions: Albuterol 0.083% [Albuterol Sulfate 3 Ml] 3 ml IH Q6H #3 neb Ipratropium 0.02% [Atrovent] 0.5 mg IH Q8H #3 neb Methylprednisolone [Medrol Dose Pack (21 tabs)] 4 mg PO DAILY #21 mg Referrals: Julee Malin MD [Medical Doctor] - Follow up with primary [facility] [Outside] - Follow up with primary Forms: [employer] (Turkish), WORK NOTE
[2018-04-05 12:33] VITALS: BP 132/86; PULSE 75; RESP 16; O2SAT 96
== END 2018-04-05 11:42 | disposition home or self-care (01) ==
LOC: ED 10:15
DX: J45.901 Unspecified asthma with (acute) exacerbation (principal)

== ENCOUNTER 2018-05-05 14:53 | Emergency (ER) | payer BC ==
[2018-05-05] MEDS ORDERED: Sodium Chloride 0.9% 1,000 ML IV STA (15:14)
[2018-05-05 15:16] VITALS: RESP 18; BMI 39.9
[2018-05-05] MEDS: Albuterol-Ipratrop 3 mg / 0.5 (3 ml) UD IH SCH ×2 (15:40→16:06)
[2018-05-05 15:47] LABS: BASO # 0.01 K/mm3 (0.0-2.0); BASO % 0.1 % (0.0-3.0); EOS # 0.2 (0.0-0.7); EOS % 1.5 % (1.5-5.0); GRAN # 10.92 (1.4-6.5); GRAN % 92.1 % (50.0-68.0); HEMOGLOBIN 14.9 g/dL (14.0-18.0); LYMPH # 0.5 (1.2-3.4); LYMPH % 3.9 % (22.0-35.0); MEAN CELL VOLUME 83.7 fl (80.0-105.0); MEAN CORPUSCULAR HEMOGLOBIN 28.3 pg (25.0-35.0); MEAN CORPUSCULAR HGB CONC 33.9 g/dl (31.0-37.0); MEAN PLATELET VOLUME 10.1 fl (7.0-11.0); MONO # 0.3 (0.1-0.6); MONO % 2.4 % (1.0-6.0); PLATELET COUNT 234 10^3/uL (120.0-450.0); RBC 5.26 10^6/uL (3.5-6.1); RED CELL DISTRIBUTION WIDTH 13.5 % (11.5-14.5); WHITE BLOOD COUNT 11.9 10^3/uL (4.5-11.0)
--- NOTE | 2018-05-05 15:53 | ED PDOC ---
Arrival/HPI - General Chief Complaint: Shortness Of Breath Time Seen by Provider: 05/05/18 15:03 Historian: Patient - History of Present Illness Narrative History of Present Illness (Text): 05/05/18 18:40 47 y/o male with PMH of asthma presents to the ED c/o N/V x 1 day. Patient ate at a buffet last night and thinks he may have eaten something bad. Four episodes of vomiting this afternoon, non-bloody. Took pepto bismol and a laxative without relief. States his vomiting exacerbated his asthma and has been having SOB. States the SOB feels like his typical asthma. Last BM today, brown non-bloody. Denies fever, chills, abdominal pain, chest pain, dizziness, vision changes, headache, chest pain, palpitations, diaphoresis, urinary symptoms, back pain, or any other associated symptoms. Past Medical History - Infectious Disease Hx of Infectious Diseases: None - Tetanus Immunization Tetanus Immunization: Up to Date - Past Medical History Past Medical History: No Previous - Cardiac Hx Cardiac Disorders: No - Pulmonary Hx Respiratory Disorders: Yes Hx Asthma: Yes - Neurological Hx Neurological Disorder: No - HEENT Hx HEENT Disorder: No - Renal Hx Renal Disorder: No - Endocrine/Metabolic Hx Endocrine Disorders: No - Hematological/Oncological Hx Blood Disorders: No - Integumentary Hx Dermatological Disorder: No - Musculoskeletal/Rheumatological Hx Musculoskeletal Disorders: Yes (sciatic nerve pain) Hx Falls: No - Gastrointestinal Hx Gastrointestinal Disorders: No - Genitourinary/Gynecological Hx Genitourinary Disorders: No - Psychiatric Hx Psychophysiologic Disorder: No Hx Depression: No Hx Emotional Abuse: No Hx Physical Abuse: No Hx Substance Use: No - Past Surgical History Past Surgical History: No Previous - Anesthesia Hx Anesthesia: Yes Hx Anesthesia Reactions: No Hx Malignant Hyperthermia: No - Suicidal Assessment Feels Threatened In Home Enviroment: No Family/Social History - Physician Review Nursing Documentation Reviewed: Yes Family/Social History: No Known Family HX Smoking Status: Never Smoked Hx Alcohol Use: No Hx Substance Use: No Hx Substance Use Treatment: No Allergies/Home Meds Allergies/Adverse Reactions: Allergies seafood Allergy (Severe, Uncoded 05/05/18 15:12) ANAPHYLAXIS Physical Exam Vital Signs Reviewed: Yes Vital Signs Temp Pulse Resp BP Pulse Ox 05/05/18 15:11 98.7 F 95 H 18 123/63 99 Temperature: Afebrile Blood Pressure: Normal Pulse: Regular Respiratory Rate: Normal Appearance: Positive for: Well-Appearing, Non-Toxic, Comfortable Pain Distress: None Mental Status: Positive for: Alert and Oriented X 3 - Systems Exam Head: Present: Atraumatic, Normocephalic Pupils: Present: PERRL Extroacular Muscles: Present: EOMI Conjunctiva: Present: Normal Mouth: Present: Moist Mucous Membranes Pharnyx: Present: Normal Nose (External): Present: Atraumatic Nose (Internal): Present: Normal Inspection, Moist Neck: Present: Normal Range of Motion. No: Paraspinal Tenderness, Lymphadenopathy Respiratory/Chest: Present: Clear to Auscultation, Decreased Breath Sounds (bilaterally ). No: Respiratory Distress, Accessory Muscle Use Cardiovascular: Present: Regular Rate and Rhythm, Normal S1, S2, Peripheal Pulses Present. No: Murmurs Abdomen: Present: Normal Bowel Sounds. No: Tenderness, Distention, Peritoneal Signs, Rebound, Guarding Back: Present: Normal Inspection. No: CVA Tenderness Upper Extremity: Present: Normal Inspection, Normal ROM, NORMAL PULSES, Neurovascularly Intact, Capillary Refill < 2s. No: Cyanosis, Edema Lower Extremity: Present: Normal Inspection, NORMAL PULSES, Normal ROM, Temperature Abnormalties, Neurovascularly Intact, Capillary Refill < 2 s. No: Edema, CALF TENDERNESS Neurological: Present: GCS=15, CN II-XII Intact, Speech Normal, Motor Func Grossly Intact, Normal Sensory Function, Gait Normal Skin: Present: Warm, Dry, Normal Color. No: Rashes Lymphatic: No: Cervical Adenopathy Psychiatric: Present: Alert, Oriented x 3, Normal Insight, Normal Concentration, Normal Affect, Normal Mood Medical Decision Making ED Course and Treatment: Initial Plan: * CBC, CMP * Lipase * UA * EKG * CXR * IVF * Solumedrol * Duoneb * Zofran EKG unchanged from previous 16:22 Patient feeling better after medications. Admits to complete resolution of chest tightness and SOB after steroids and duoneb. Reports complete resolution of nausea after zofran. Continues to deny chest pain or abdominal pain. Lung exam i mproved, better air flow bilaterally. CXR: no active disease; read by me and Dr. Gloria AXR: constipation, no obstruction; read by me and Dr. Gloria Plan of care discussed with patient, and strict instructions given regarding prescriptions, importance of follow up, and signs to return to Emergency Department, to include chest pain, abdominal pain, fever, chills, or any other new/worsening symptoms. Patient verbalizes understanding of discussion. Patient A&Ox3, ambulating with steady gait, stable for discharge home. - Lab Interpretations Lab Results: 05/05/18 15:25 Lab Results 05/05/18 15:25: WBC 11.9 H, RBC 5.26, Hgb 14.9, Hct 44.0, MCV 83.7, MCH 28.3, MCHC 33.9, RDW 13.5, Plt Count 234, MPV 10.1, Gran % 92.1 H, Lymph % (Auto) 3.9 L, [place] % (Auto) 2.4, Eos % (Auto) 1.5, Baso % (Auto) 0.1, Gran # 10.92 H, Lymph # (Auto) 0.5 L, [place] # (Auto) 0.3, Eos # (Auto) 0.2, Baso # (Auto) 0.01, Neutrophils % (Manual) Pending, Lymphocytes % (Manual) Pending, Monocytes % (Manual) Pending 05/05/18 15:25 05/05/18 15:25 Lab Results 05/05/18 18:36: Urine Color Yellow, Urine Appearance Clear, Urine pH 8.0, Ur Specific [place] 1.015, Urine Protein Negative, Urine Glucose (UA) Negative, Urine Ketones Negative, Urine Blood Negative, Urine Nitrate Negative, Urine Bilirubin Negative, Urine Urobilinogen 0.2, Ur Leukocyte Esterase Negative 05/05/18 15:25: Sodium 139, Potassium 4.0, Chloride 104, Carbon Dioxide 26, Anion Gap 12, BUN 14, Creatinine 1.0, Est GFR ( Amer) > 60, Est GFR (Non- Af Amer) > 60, Random Glucose 102, Calcium 9.0, Phosphorus 2.5, Magnesium 1.8, Total Bilirubin 0.9, AST 41, ALT 41, Alkaline Phosphatase 80, Total Protein 8.2, Albumin 4.4, Globulin 3.8, Albumin/Globulin Ratio 1.2, Lipase 35 05/05/18 15:25: WBC 11.9 H, RBC 5.26, Hgb 14.9, Hct 44.0, MCV 83.7, MCH 28.3, MCHC 33.9, RDW 13.5, Plt Count 234, MPV 10.1, Gran % 92.1 H, Lymph % (Auto) 3.9 L, [place] % (Auto) 2.4, Eos % (Auto) 1.5, Baso % (Auto) 0.1, Gran # 10.92 H, Lymph # (Auto) 0.5 L, [place] # (Auto) 0.3, Eos # (Auto) 0.2, Baso # (Auto) 0.01, Neutro phils % (Manual) 89 H, Lymphocytes % (Manual) 9 L, Atypical Lymphs % 1 H, Monocytes % (Manual) 6, Eosinophils % (Manual) 1 I have reviewed the lab results: Yes - RAD Interpretation Radiology Orders: 05/05/18 15:15 CXR (PA/LAT) [CHEST TWO VIEWS (PA/LAT)] [RAD] Stat 05/05/18 15:45 obstructive series [ABD 2 VIEWS (FLAT/UP OR DECUB)] [RAD] Stat - EKG Interpretation EKG Interpretation (Text): Rate 86; NSR; Normal intervals; No STEMI, no T wave inversions. Compared to EKG from 02/2017, no significant change. Interpreted by ED Physician: Yes (Dr. Gloria) Type: 12 lead EKG Comparison: Similar to previous EKG - Medication Orders Current Medication Orders: Albuterol/Ipratropium (Duoneb 3 Mg/0.5 Mg (3 Ml) Ud) 3 ml IH Q15M BENJI Stop: 05/05/18 16:01 Last Admin: 05/05/18 15:40 Dose: 3 ml Sodium Chloride (Sodium Chloride 0.9%) 1,000 mls @ 999 mls/hr IV .Q1H1M STA Stop: 05/05/18 16:14 Last Admin: 05/05/18 15:40 Dose: 999 mls/hr eMAR Start Stop Document 05/05/18 15:40 SS (Rec: 05/05/18 15:41 SS [id number]) Intravenous Solution Start Date 05/05/18 Start Time 15:40 End Date 05/05/18 End time 16:41 Total Infusion Time 61 Discontinued Medications Methylprednisolone (Solu-Medrol) 125 mg IVP STAT STA Stop: 05/05/18 15:17 Last Admin: 05/05/18 15:40 Dose: 125 mg IVP Administration Document 05/05/18 15:40 SS (Rec: 05/05/18 15:40 SS [id number]) Charges for Administration # of IVP Administrations 1 Ondansetron HCl (Zofran Inj) 4 mg IVP STAT STA Stop: 05/05/18 15:17 Last Admin: 05/05/18 15:40 Dose: 4 mg IVP Administration Document 05/05/18 15:40 SS (Rec: 05/05/18 15:40 SS [id number]) Charges for Administration # of IVP Administrations 1 Wells Criteria for PE - Wells Criteria for Pulmonary Embolism Clinical Signs and Symptoms of DVT: No P.E is #1 Diagnosis, or Equally Likely: No Heart Rate >100: No Immobilization at least 3 days;Surgery previous 4 weeks: No Previous, objectively diagnosed PE or DVT: No Hemoptysis: No Malignancy w/treatment within 6 months, or palliative: No Total Score: 0 Disposition/Present on Arrival - Present on Arrival Any Indicators Present on Arrival: No History of DVT/PE: No History of Uncontrolled Diabetes: No Urinary Catheter: No History of Decub. Ulcer: No History Surgical Site Infection Following: None - Disposition Have Diagnosis and Disposition been Completed?: Yes Diagnosis: Asthma exacerbation, Nausea & vomiting Disposition: HOME/ ROUTINE Disposition Time: 18:45 Patient Problems: Current Active Problems Problem Status Onset Asthma exacerbation Acute Nausea & vomiting Acute Condition: STABLE Discharge Instructions (ExitCare): Asthma, Adult (DC), Nausea and Vomiting, Adult (DC) Additional Instructions: Take steroids daily for 4 days Increase fluids Rest, no strenuous activity Followup with primary doctor within 2 days Return to ER for any new/worsening symptoms Prescriptions: Famotidine [Pepcid] 20 mg PO Q12H #30 tab Prednisone [Deltasone] 40 mg PO DAILY #8 tablet Forms: [employer] ([place])
[2018-05-05 16:14] LABS: ALB/GLOB RATIO 1.2 (1.1-1.8); ALBUMIN 4.4 g/dL (3.0-4.8); ALT/SGPT 41 U/L (7-56); AST/SGOT 41 U/L (17-59); BLOOD UREA NITROGEN 14 mg/dL (7-21); GFR NON-AFRICAN AMERICAN > 60; LIPASE 35 U/L (23-300)
[2018-05-05 16:45] LABS: ATYPICAL LYMPHOCYTE 1 % (0.0-0.0); EOSINOPHIL 1 % (0.0-3.0); LYMPHOCYTE 9 % (22.0-35.0); MONOCYTE 6 % (1.0-6.0); NEUTROPHIL 89 % (50.0-70.0)
[2018-05-05 18:46] LABS: URINE APPEARANCE CLEAR (CLEAR); URINE BILIRUBIN NEGATIVE (NEGATIVE); URINE BLOOD NEGATIVE (NEGATIVE); URINE COLOR YELLOW (YELLOW); URINE GLUCOSE (UA) NEGATIVE (NEGATIVE); URINE LEUKOCYTE ESTERASE NEGATIVE Leu/uL (NEGATIVE); URINE PROTEIN NEGATIVE mg/dL (<30 mg/dL); URINE UROBILINOGEN 0.2 E.U./dL (<1 E.U./dL)
[2018-05-05 20:19] VITALS: BP 148/78; PULSE 96; TEMP 98; O2SAT 98
--- NOTE | 2018-05-05 20:22 | CARD ---
APPROVED REPORT Date of service: 05/05/2018 EKG Measurement Heart [id number] <Conclusion> Normal sinus rhythm Normal ECG
--- NOTE | 2018-05-06 11:12 | RAD ---
Date of service: 05/05/2018 HISTORY: Shortness of breath COMPARISON: 08/31/2017. TECHNIQUE: Chest PA and lateral FINDINGS: LINES AND TUBES: None. LUNG AND PLEURA: The lungs are well inflated and clear. No pleural effusion or pneumothorax. HEART AND MEDIASTINUM: The heart is not enlarged. No aortic atherosclerotic calcification present. The hilar and mediastinal contours are within normal limits. SKELETAL STRUCTURES: The bony structures are within normal limits for the patient's age. VISUALIZED UPPER ABDOMEN: Normal. OTHER FINDINGS: None. IMPRESSION: No active pulmonary disease.
--- NOTE | 2018-05-06 14:22 | RAD ---
Date of service: 05/05/2018 HISTORY: vomiting COMPARISON: None available. FINDINGS: BOWEL: The small bowel loops are normal in caliber. There is moderate amount of stool in the colon and rectum. The bowel gas pattern is nonspecific and nonobstructive. BONES: Normal. OTHER FINDINGS: None. IMPRESSION: Nonspecific nonobstructive bowel gas pattern.
== END 2018-05-05 19:00 | disposition home or self-care (01) ==
LOC: ED 14:53
DX: J45.901 Unspecified asthma with (acute) exacerbation (principal); R11.2 Nausea with vomiting, unspecified
CPT/HCPCS: 71046; 74019; 80053; 81003; 83690; 83735; 84100; 85025; 93005; 96361; 96374; 96375; 99283; J2405; J2930; J7030